=== PATIENT | male | born 1990 | race American Indian/Alaskan Native ===

== ENCOUNTER 2017-12-31 08:36 | Emergency (ER) | payer SELFPAY ==
[2017-12-31 08:58] LABS: Basophils # (Auto) 0.1 K/mm3 (0.0-0.1); Basophils % (Auto) 0.5 % (0.0-1.8); Eosinophils # (Auto) 0.1 K/mm3 (0.0-0.4); Eosinophils % (Auto) 0.6 % (0.0-4.3); Hematocrit 53.1 % (35.5-45.6); Hemoglobin 18.1 gm/dl (11.8-15.2); Lymphocytes # (Auto) 1.9 K/mm3 (1.2-5.4); Lymphocytes % (Auto) 20.4 % (13.4-35.0); Mean Corpuscular HGB Conc 34 % (32-34); Mean Corpuscular Hemoglobin 29 pg (28-32); Mean Corpuscular Volume 85 fl (84-94); Monocytes # (Auto) 0.7 K/mm3 (0.0-0.8); Monocytes % (Auto) 7.2 % (0.0-7.3); Platelet Count 336 K/mm3 (140-440); Red Blood Count 6.21 M/mm3 (3.65-5.03); Red Cell Distribution Width 12.9 % (13.2-15.2)
[2017-12-31 09:11] LABS: BUN/Creatinine Ratio 17; Blood Urea Nitrogen 12 mg/dL (9-20); Calcium 9.7 mg/dL (8.4-10.2); Hemolysis Index 69
[2017-12-31 09:17] LABS: INR 0.84 (0.87-1.13)
[2017-12-31 09:19] LABS: Partial Thromboplastin Time 24.9 Sec. (24.2-36.6)
--- NOTE | 2017-12-31 09:20 | Cat Scan Report ---
CT HEAD WITHOUT CONTRAST: HISTORY: Neurological deficit. TECHNIQUE: Sequential 2.5mm CT images. COMPARISON: none. FINDINGS: Cerebral Parenchyma: Within normal limits. Cerebellum: Within normal limits. Brainstem: Within normal limits. Ventricles: Normal. Sella: Normal. Extra-axial spaces: Normal. Basal Cisterns: Normal. Intracranial Hemorrhage: None. Midline Shift: None. Calvarium: Normal. Sinuses: Normal. Mastoid Air Cells: Normal. Visualized Orbits: Normal. IMPRESSION: Cranial CT scan within normal limits. These findings were discussed with Dr. Kramer in the emergency department at 0913 hours. Please note the time than noted on the CT images on PACS is one hour behind actual time. The examination was performed at 0910 hrs.
[2017-12-31] MEDS ORDERED: NORMODYNE IV ONE ×3 (09:24→12:14)
[2017-12-31 11:31] LABS: Benzodiazepines Screen,Urine PRESUMPTIVE NEGATIVE; Cannabinoid Screen,Urine PRESUMPTIVE NEGATIVE; Methadone Screen,Urine PRESUMPTIVE NEGATIVE; Opiate Screen,Urine PRESUMPTIVE NEGATIVE
[2017-12-31 11:45] LABS: Amphetamine Screen,Urine PRESUMPTIVE POSITIVE; Cocaine Screen,Urine PRESUMPTIVE POSITIVE
[2017-12-31] MEDS ORDERED: NACL 0.9% 1000 ML 1,000 ML IV ONE (12:17)
--- NOTE | 2017-12-31 13:02 | Emergency Department Report ---
ED General Adult HPI - General Chief complaint: Neuro Symptoms/Deficit Stated complaint: RIGHT ARM INJURY Time Seen by Provider: 12/31/17 09:31 Source: patient Mode of arrival: Ambulatory Limitations: No Limitations - History of Present Illness Initial comments: I believe triage was suffering from a language barrier when this patient was brought back as a code stroke. I was told by the triage nurse that he had left arm weakness and numbness. However when I obtained the history in [place] who was clear that the patient was not suffering from a stroke syndrome at all. 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 He stated that he overdosed on drugs last night but did not intentionally want to hurt himself. He said no weakness whatsoever. No headache. He has had essentially paresthesias in both arms and left leg but not actually loss of sensation. Patient denies any previous hospitalizations. He does state he has been told he has side blood pressure in the past. He is not currently taking any medication. -: Gradual, hour(s) Location: upper extremity, lower extremity Quality: other Consistency: intermittent Improves with: none Worsens with: none Associated Symptoms: denies other symptoms Treatments Prior to Arrival: none - Related Data Previous Rx's Medication Instructions Recorded Last Taken Type amLODIPine [Norvasc] 5 mg PO DAILY #30 tab 12/31/17 Unknown Rx Allergies Allergy/AdvReac Type Severity Reaction Status Date / Time No Known Allergies Allergy Unverified 12/31/17 08:38 ED Review of Systems ROS: Stated complaint: RIGHT ARM INJURY Other details as noted in HPI Constitutional: denies: chills, fever Eyes: denies: eye pain, eye discharge, vision change ENT: denies: ear pain, throat pain Respiratory: denies: cough, shortness of breath, wheezing Cardiovascular: denies: chest pain, palpitations Endocrine: no symptoms reported Gastrointestinal: denies: abdominal pain, nausea, diarrhea Genitourinary: denies: urgency, dysuria Musculoskeletal: denies: back pain, joint swelling, arthralgia Skin: denies: rash, lesions Neurological: paresthesias. denies: headache, weakness, numbness, confusion, abnormal gait, vertigo Psychiatric: denies: anxiety, depression Hematological/Lymphatic: denies: easy bleeding, easy bruising ED Past Medical Hx - Past Medical History Previous Medical History?: No - Surgical History Past Surgical History?: No - Social History Smoking Status: Current Every Day Smoker Substance Use Type: Alcohol, Cocaine, Heroin, Marijuana - Medications Home Medications: Home Medications Medication Instructions Recorded Confirmed Last Taken Type amLODIPine [Norvasc] 5 mg PO DAILY #30 tab 12/31/17 Unknown Rx ED Physical Exam - General Limitations: No Limitations General appearance: alert, in no apparent distress - Head Head exam: Present: atraumatic, normocephalic - Eye Eye exam: Present: normal appearance, PERRL, EOMI. Absent: scleral icterus - ENT ENT exam: Present: mucous membranes moist - Neck Neck exam: Present: normal inspection - Respiratory Respiratory exam: Present: normal lung sounds bilaterally. Absent: respiratory distress - Cardiovascular Cardiovascular Exam: Present: regular rate, normal rhythm. Absent: systolic murmur, diastolic murmur, rubs, gallop - GI/Abdominal GI/Abdominal exam: Present: soft, normal bowel sounds. Absent: distended, tenderness, guarding, rebound, rigid - Rectal Rectal exam: Present: deferred - Extremities Exam Extremities exam: Present: normal inspection, full ROM, normal capillary refill. Absent: tenderness, pedal edema, joint swelling, calf tenderness - Back Exam Back exam: Present: normal inspection. Absent: CVA tenderness (R), CVA tenderness (L), muscle spasm, paraspinal tenderness, vertebral tenderness - Neurological Exam Neurological exam: Present: alert, oriented X3, CN II-XII intact, other (NIH stroke score is 0). Absent: motor sensory deficit - Psychiatric Psychiatric exam: Present: normal affect, normal mood - Skin Skin exam: Present: warm, dry, intact, normal color. Absent: rash ED Course Vital Signs 12/31/17 12/31/17 12/31/17 08:38 09:17 09:24 Temperature 97.8 F Pulse Rate 143 H 104 H Respiratory 22 Rate Blood Pressure 190/113 171/121 Blood Pressure [Right] O2 Sat by Pulse 98 92 Oximetry 12/31/17 12/31/17 12/31/17 09:25 09:30 09:33 Temperature Pulse Rate 114 H 101 H Respiratory 16 15 16 Rate Blood Pressure 152/110 Blood Pressure 171/121 159/112 [Right] O2 Sat by Pulse 97 96 97 Oximetry 12/31/17 12/31/17 12/31/17 09:45 10:00 10:15 Temperature Pulse Rate 104 H 104 H 107 H Respiratory 26 H 28 H 23 Rate Blood Pressure 152/110 152/101 152/101 Blood Pressure [Right] O2 Sat by Pulse 96 96 97 Oximetry 12/31/17 12/31/17 12/31/17 10:30 10:45 11:00 Temperature Pulse Rate 110 H 108 H 112 H Respiratory 13 15 12 Rate Blood Pressure 146/102 146/102 156/104 Blood Pressure [Right] O2 Sat by Pulse 97 97 97 Oximetry 12/31/17 12/31/17 12/31/17 11:15 11:30 11:45 Temperature Pulse Rate 107 H 107 H 102 H Respiratory 17 8 L 25 H Rate Blood Pressure 156/104 153/98 153/98 Blood Pressure [Right] O2 Sat by Pulse 97 95 97 Oximetry 12/31/17 12/31/17 12/31/17 12:00 12:15 12:19 Temperature Pulse Rate 103 H 100 H 107 H Respiratory 14 16 Rate Blood Pressure 149/102 149/102 149/102 Blood Pressure [Right] O2 Sat by Pulse 97 98 Oximetry - Reevaluation(s) Reevaluation #1: Given medicine for his hypertension. Controlled IV fluid. 12/31/17 13:01 Reevaluation #2: Patient is asymptomatic and appropriate for outpatient management. 12/31/17 14:03 ED Medical Decision Making - Lab Data Result diagrams: 12/31/17 08:52 12/31/17 08:52 Laboratory Results - last 24 hr 12/31/17 12/31/17 12/31/17 08:52 08:52 08:52 WBC 9.5 RBC 6.21 H Hgb 18.1 H Hct 53.1 H MCV 85 MCH 29 MCHC 34 RDW 12.9 L Plt Count 336 Lymph % (Auto) 20.4 [place] % (Auto) 7.2 Eos % (Auto) 0.6 Baso % (Auto) 0.5 Lymph # 1.9 [place] # 0.7 Eos # 0.1 Baso # 0.1 Seg Neutrophils % 71.3 H Seg Neutrophils # 6.8 PT 11.9 L INR 0.84 L APTT 24.9 Thrombin Time Sodium 137 Potassium 4.4 Chloride 94.7 L Carbon Dioxide 22 Anion Gap 25 BUN 12 Creatinine 0.7 L Estimated GFR > 60 BUN/Creatinine Ratio 17 Glucose 117 H POC Glucose Calcium 9.7 Troponin T < 0.010 Urine Opiates Screen Urine Methadone Screen Ur Barbiturates Screen Ur Phencyclidine Scrn Ur Amphetamines Screen U Benzodiazepines Scrn Urine Cocaine Screen U Marijuana (THC) Screen Drugs of Abuse Note 12/31/17 12/31/17 12/31/17 08:52 09:22 10:50 WBC RBC Hgb Hct MCV MCH MCHC RDW Plt Count Lymph % (Auto) [place] % (Auto) Eos % (Auto) Baso % (Auto) Lymph # [place] # Eos # Baso # Seg Neutrophils % Seg Neutrophils # PT INR APTT Thrombin Time 16.1 Sodium Potassium Chloride Carbon Dioxide Anion Gap BUN Creatinine Estimated GFR BUN/Creatinine Ratio Glucose POC Glucose 100 Calcium Troponin T Urine Opiates Screen Presumptive negative Urine Methadone Screen Presumptive negative Ur Barbiturates Screen Presumptive negative Ur Phencyclidine Scrn Presumptive negative Ur Amphetamines Screen Presumptive positive U Benzodiazepines Scrn Presumptive negative Urine Cocaine Screen Presumptive positive U Marijuana (THC) Screen Presumptive negative Drugs of Abuse Note Disclamer Laboratory Results - last 24 hr 12/31/17 12/31/17 12/31/17 08:52 08:52 08:52 WBC 9.5 RBC 6.21 H Hgb 18.1 H Hct 53.1 H MCV 85 MCH 29 MCHC 34 RDW 12.9 L Plt Count 336 Lymph % (Auto) 20.4 [place] % (Auto) 7.2 Eos % (Auto) 0.6 Baso % (Auto) 0.5 Lymph # 1.9 [place] # 0.7 Eos # 0.1 Baso # 0.1 Seg Neutrophils % 71.3 H Seg Neutrophils # 6.8 PT 11.9 L INR 0.84 L APTT 24.9 Thrombin Time Sodium 137 Potassium 4.4 Chloride 94.7 L Carbon Dioxide 22 Anion Gap 25 BUN 12 Creatinine 0.7 L Estimated GFR > 60 BUN/Creatinine Ratio 17 Glucose 117 H POC Glucose Calcium 9.7 Troponin T < 0.010 Urine Opiates Screen Urine Methadone Screen Ur Barbiturates Screen Ur Phencyclidine Scrn Ur Amphetamines Screen U Benzodiazepines Scrn Urine Cocaine Screen U Marijuana (THC) Screen Drugs of Abuse Note 12/31/17 12/31/17 12/31/17 08:52 09:22 10:50 WBC RBC Hgb Hct MCV MCH MCHC RDW Plt Count Lymph % (Auto) [place] % (Auto) Eos % (Auto) Baso % (Auto) Lymph # [place] # Eos # Baso # Seg Neutrophils % Seg Neutrophils # PT INR APTT Thrombin Time 16.1 Sodium Potassium Chloride Carbon Dioxide Anion Gap BUN Creatinine Estimated GFR BUN/Creatinine Ratio Glucose POC Glucose 100 Calcium Troponin T Urine Opiates Screen Presumptive negative Urine Methadone Screen Presumptive negative Ur Barbiturates Screen Presumptive negative Ur Phencyclidine Scrn Presumptive negative Ur Amphetamines Screen Presumptive positive U Benzodiazepines Scrn Presumptive negative Urine Cocaine Screen Presumptive positive U Marijuana (THC) Screen Presumptive negative Drugs of Abuse Note Disclamer Critical care attestation.: If time is entered above; I have spent that time in minutes in the direct care of this critically ill patient, excluding procedure time. ED Disposition Clinical Impression: Polysubstance abuse Hypertension Qualifiers: Hypertension type: unspecified Qualified Code(s): I10 - Essential (primary) hypertension Disposition: DC- TO HOME OR SELFCARE Is pt being admited?: No Does the pt Need Aspirin: No Condition: Stable Instructions: Hypertension (ED), Polysubstance Abuse (ED) Additional Instructions: Returned a few change or further problem. Obviously avoid substance abuse especially with hypertension as it can lead to stroke and other organ damage. Prescriptions: amLODIPine [Norvasc] 5 mg PO DAILY #30 tab Referrals: PRIMARY CARE [Primary Care Provider] - 3-5 Days [facility] [Provider Group] - 3-5 Days Time of Disposition: 14:04
[2017-12-31 14:18] VITALS: BP 146/99
== END 2017-12-31 14:19 | disposition home or self-care (01) ==
LOC: ED 08:36
DX: I10 Essential (primary) hypertension (principal); M79.601 Pain in right arm; M79.602 Pain in left arm; F14.10 Cocaine abuse, uncomplicated; F12.10 Cannabis abuse, uncomplicated; F11.10 Opioid abuse, uncomplicated
CPT/HCPCS: 36415; 70450; 80048; 80307; 82550; 82962; 84484; 85025; 85610; 85670; 85730; 93005; 93010; 96361; 96374; 96376; 99284; J7030